=== PATIENT | male | born 1950 | race Caucasian/White ===

== ENCOUNTER → 2023-01-30 | Outpatient (CLI) | payer MEDICARE ==
--- NOTE | 2023-02-05 20:42 | CTL ---
EXAMINATION TYPE: CT Low Dose Lung DATE OF EXAM: 01/30/2023 8:53 AM CLINICAL INDICATION:Male, 72 years old with history of Z12.2 screening , F17.210 nicotine dependence; personal history of nicotine dependence , history of tobacco use. COMPARISON: None. Baseline study. TECHNIQUE: CT scan of the chest obtained without contrast from approximately the lung apices through the upper abdomen. Axial, coronal and sagittal reformatted images were obtained. Low dose technique w as utilized for nodule screening purposes. CT DLP: 63.5 mGycm, Automated exposure control for dose reduction was used. CT Contrast: Contrast used: None Oral contrast used: None FINDINGS: Lack of intravenous contrast and low dose technique limits the evaluation of the vascular and soft ti ssue structures. LUNGS: No evidence of pulmonary fibrosis. No evidence of focal consolidation, pneumothorax or pleural effusion. There are emphysematous changes bilaterally, moderate bilaterally with an upper lobe pred ominance. Pleural/parenchymal scarring along the lung apices. Nodules: RUL: None significant. Small calcified granuloma in the anterior lobe. RML: None significant. Small area of presumed scarring or atelectasis inferomedially. RLL: None SLICK: None LLL: None AIRWAY: Patent and unremarkable. LOWER NECK: No significant findings. HEART AND VASCULATURE: Heart is normal in size.. Mild/moderate coronary artery calcifications. Mild atherosclerotic calcifications of the aorta and proximal branch vessels along the arch. Ectatic asce nding aorta 4.3 cm, descending aorta normal in size 2.7 cm. Pulmonary trunk is not enlarged, diameter 2.4 cm. MEDIASTINUM: No gross evidence of adenopathy. SOFT TISSUES/LYMPH NODES: Mild bilateral gynecomastia. No axillary adenopathy. UPPER ABDOMEN: Mildly thickened adrenals without evidence of mass in the visualized portions. Moderat e hepatic steatosis. MUSCULOSKELETAL: Mild disc degeneration changes are present throughout the thoracolumbar spine. No a cute findings. Incompletely healed nonacute nondisplaced fractures of the left lateral eighth and radha th ribs. IMPRESSION: 1. No evidence of clinically significant pulmonary nodules. 2. Moderate bilateral centrilobular emphysema. 3. Mild/moderate coronary arterial calcifications. 4. Ectasia of the ascending aorta measuring up to 4 cm. Mild calcification of the aorta. 5. Moderate hepatic steatosis. CT LUNG RAD AND CT CHEST RECOMMENDATION: Lung-Rad 1 Negative: Continue annual screening with LDCT in 12 months. C Modifier (Personal history of lung cancer?): No. S Modifier (Other clinically significant or potentially significant findings?): No. Recommend smoking cessation (if current smoker), or continuation of smoking cessation (if prior smoke r). Annual screening for lung cancer with low-dose computed tomography is recommended in adults ages 55 to 77 years who have a 30 pack-year smoking history and currently smoke or have quit within the pa st 15 years. Screening should be discontinued once a person has not smoked for 15 years or develops a health problem that substantially limits life expectancy or the ability or willingness to have curat cameron lung surgery. Lung rads 2021 [email or web address]
== END | disposition home or self-care (01) ==
LOC: RADCTMAIN 08:12
PROVIDERS: ATTEND Family Medicine
DX: Z12.2 Encounter for screening for malignant neoplasm of respiratory organs (principal); J43.2 Centrilobular emphysema; K76.0 Fatty (change of) liver, not elsewhere classified; I70.0 Atherosclerosis of aorta; I25.10 Atherosclerotic heart disease of native coronary artery without angina pectoris; F17.210 Nicotine dependence, cigarettes, uncomplicated
CPT/HCPCS: 71271

== ENCOUNTER → 2023-01-30 | Outpatient (CLI) | payer MEDICARE ==
--- NOTE | 2023-01-30 15:11 | US ---
EXAMINATION TYPE: US liver DATE OF EXAM: 01/30/2023 COMPARISON: NONE CLINICAL INDICATION: Male, 72 years old with history of Z86.19 PERSONAL HISTORY OF OTHER INFECTIOUS; History of hepatitis B. Hx of other infectious and parasitic diseases. TECHNIQUE: Multiple sonographic images of the right upper quadrant are obtained. FINDINGS: EXAM MEASUREMENTS: Liver Length: 16.3 cm Gallbladder Wall: 0.3 cm CBD: 0.4 cm Right Kidney: 13.0 x 6.4 x 4.2 cm MICROBIOLOGY TECHNICIAN NOTES: Limited due to gas. Pancreas: Most of the pancreas is visualized and shows no gross abnormality. Liver: Moderate increased echogenicity. -Hypoechoic area seen adjacent to kathleen hepatis: 3.6 x 2.4 x 1.4 cm. Likely focal fatty sparing. Gallbladder: Borderline wall thickening likely due to nondistention. No surrounding fluid, hydropic c hange, or shadowing calculi. Evidence for sonographic Villanueva's sign: No CBD: Appears wnl Right Kidney: No hydronephrosis. IMPRESSION: 1. At least moderate hepatic steatosis. Appropriate clinical management is advised. 2. No gallstones or biliary ductal dilatation.
== END | disposition home or self-care (01) ==
LOC: RADUSWWP 08:13
PROVIDERS: ATTEND Family Medicine
DX: K76.0 Fatty (change of) liver, not elsewhere classified (principal); Z86.19 Personal history of other infectious and parasitic diseases
CPT/HCPCS: 76705

== ENCOUNTER → 2023-05-22 | Outpatient (CLI) | payer MEDICARE ==
[2023-05-22 16:17] LABS: Basophils # (A) 0.07 X 10*3/uL (0.00-0.10); Basophils % (A) 1.1 %; Eosinophils # (A) 0.19 X 10*3/uL (0.04-0.35); Eosinophils % (A) 3.1 %; HGB 15.9 g/dL (13.0-17.0); Lymphocytes # (A) 1.25 X 10*3/uL (0.90-5.00); Lymphocytes % (A) 20.4 %; MCHC 32.4 g/dL (32.0-37.0); MCV 95.5 FL (80.0-97.0); Monocytes # (A) 0.58 X 10*3/uL (0.20-1.00); Monocytes % (A) 9.4 %; NRBC Per 100 WBC 0 X 10*3/uL (0.00-0.01); Neutrophils # (A) 4.03 X 10*3/uL (1.80-7.70); Neutrophils % (A) 65.7 %; Platelet Count 282 X 10*3/uL (140-440); RBC 5.13 X 10*6/uL (4.40-5.60); RDW 12.9 % (11.5-14.5); WBC 6.14 X 10*3/uL (4.50-10.00)
== END | disposition home or self-care (01) ==
LOC: LABPAT 08:57
PROVIDERS: ATTEND Surgery
DX: Z01.818 Encounter for other preprocedural examination (principal); J98.4 Other disorders of lung; K40.90 Unilateral inguinal hernia, without obstruction or gangrene, not specified as recurrent; I51.7 Cardiomegaly; R94.31 Abnormal electrocardiogram [ECG] [EKG]; R00.0 Tachycardia, unspecified
CPT/HCPCS: 85025; 86850; 86900; 86901; 93005

== ENCOUNTER 2023-05-25 06:09 | Day surgery (SDC) | payer MEDICARE ==
[~2023-05-25 06:09] MED LIST: HEPARIN SODIUM,PORCINE 5,000 UNIT/ML 1 ML VIAL SQ PRN
[2023-05-25] MEDS ORDERED: HYDROmorphone 0.5 MG/0.5 ML SYRINGE IVP PRN (07:00)
[2023-05-25] MEDS: ACETAMINOPHEN TAB 500 MG TAB PO PRN (07:00)
[2023-05-25] MEDS: LACTATED RINGERS 1,000 ML IV SCH (07:10)
[2023-05-25] MEDS: ONDANSETRON 4 MG/2 ML VIAL IVP ONE (07:12)
[2023-05-25] MEDS: DEXAMETHASONE SOD PHOSPHATE 4 MG/ML 1 ML VIAL IV ONE (07:12)
[2023-05-25] MEDS: MIDAZOLAM 2 MG/2 ML VIAL IV PRN (07:24)
--- NOTE | 2023-05-25 07:25 | P.GSHP ---
History of Present Illness H&P Date: 05/25/23 Chief Complaint: Right inguinal hernia 72-year-old male here today for laparoscopic repair right inguinal hernia. Patient has complaints of a bulge that is painful at times for the last several months. Occurred after lifting heavy objects. When he was seen in the office i t was difficult to palpate a hernia with certainty. Today in the office and also when we did his recent colonoscopy a small hernia was identified although the patient states it sometimes gets quite large like lemon or mary's igloo in size. That is when its most painful. No history of prior hernias. Past Medical History Past Medical History: COPD, Hyperlipidemia, Skin Disorder Additional Past Medical History / Comment(s): emphysema-per hipolito, hernia rt groin, eczema - back of leg and foot History of Any Multi-Drug Resistant Organisms: None Reported Additional Past Surgical History / Comment(s): colonoscopy Past Anesthesia/Blood Transfusion Reactions: No Reported Reaction Smoking Status: Current every day smoker - Past Family History Mother Family Medical History: No Reported History Medications and Allergies Home Medications Medication Instructions Recorded Confirmed Type Atorvastatin [Lipitor] 20 mg PO HS 05/23/23 05/25/23 History Zolpidem [Ambien] 10 mg PO HS PRN 05/23/23 05/25/23 History Allergies Allergy/AdvReac Type Severity Reaction Status Date / Time No Known Allergies Allergy Verified 05/25/23 06:41 Surgical - Exam Vital Signs Temp Pulse Resp BP Pulse Ox 97.9 F 92 18 169/81 98 05/25/23 06:51 05/25/23 06:51 05/25/23 06:51 05/25/23 06:51 05/25/23 06:51 Physical exam: General: Well-developed, well-nourished HEENT: Normocephalic, sclerae nonicteric Abdomen: Nontender, nondistended, small right inguinal hernia Extremities: No edema Neuro: Alert and oriented Assessment and Plan (1) Right inguinal hernia Narrative/Plan: 72-year-old male with right inguinal hernia. Will proceed with laparoscopic da Clark assisted repair right inguinal hernia with mesh, possible open, possible bilateral. Risks of bleeding, infection, recurrence, bladder and bowel injury, numbness, nerve injury, conversion to an open procedure were discussed with the patient. The patient understands and wishes to proceed. Current Visit: Yes Status: Acute Code(s): K40.90 - UNIL INGUINAL HERNIA, W/O OBST OR GANGR, NOT SPCF RECUR SNOMED Code(s): 214556790
[2023-05-25] MEDS ORDERED: SUCCINYLCHOLINE CHLORIDE 200 MG/10 ML VIAL IV ONE (07:28)
[2023-05-25] MEDS ORDERED: NEOSTIGMINE 1 MG/ML 10 ML VIAL ONE (07:28)
[2023-05-25] MEDS ORDERED: LIDOCAINE 1% INJ 10MG/ML (20 ML MDV) ONE (07:28)
[2023-05-25] MEDS ORDERED: PROPOFOL 10 MG/ML 20 ML VIAL IV ONE (07:28)
[2023-05-25] MEDS ORDERED: ROCURONIUM 10 MG/ML (5 ML VIAL) IV ONE (07:28)
[2023-05-25] MEDS ORDERED: MIDAZOLAM 2 MG/2 ML VIAL ONE (07:28)
[2023-05-25] MEDS ORDERED: GLYCOPYRROLATE 0.2 MG/ML 2 ML VIAL ONE (07:28)
[2023-05-25] MEDS ORDERED: HYDROmorphone (PF) 1 MG/ML ONE (07:28)
[2023-05-25] MEDS ORDERED: LABETALOL 5 MG/ML VIAL MDV ONE (07:28)
[2023-05-25] MEDS ORDERED: fentaNYL (PF) 50 MCG/ML 2 ML AMP ONE (07:28)
[2023-05-25] MEDS: TAMSULOSIN 0.4 MG CAP.ER.24H PO ONE (07:28)
[2023-05-25] MEDS: BUPIVACAINE (PF) 0.25% 30 ML VIAL SQ ONE ×2 (07:56→07:58)
[2023-05-25] MEDS: LACTATED RINGERS 1,000 ML IV ONE (08:25)
--- NOTE | 2023-05-25 09:25 | P.OP ---
Date of Procedure: 05/25/23 Procedure(s) Performed: PREOPERATIVE DIAGNOSIS: Right inguinal hernia POSTOPERATIVE DIAGNOSIS: Right indirect inguinal hernia PROCEDURE: Laparoscopic da Clark assisted repair right inguinal hernia with mesh SURGEON: Dr. Rachel ANESTHESIA: General OPERATIVE PROCEDURE DETAILS: Patient was placed in the operating table in the supine position. The patient was placed under general anesthesia. The abdomen was prepped and draped in usual sterile fashion. A small curvilinear supraumbilical incision was made. The fascia was retracted anteriorly with Cari forceps. The Veress needle was inserted. The saline drop test was normal. Insufflation took place to 15 mmHg. An 8 mm trocar was placed into the peritoneal cavity. 2 additional 8 mm trochars were placed in the right upper quadrant and left upper quadrant under visualization. The robotic arms were then brought in and docked into place. The fenestrated bipolar was used in the left arm and the laparoscopic brandt was utilized in the right arm. A 30 8 mm scope was used in the up position. The peritoneal cavity was inspected. The patient had a moderate-sized indirect hernia on the right. The start of a tiny left inguinal hernia was noted. This was not repaired today. The peritoneum was incised in a horizontal fashion cephalad to the internal inguinal ring. Following that careful dissection of the preperitoneal space took place. This took place using both electrocautery, sharp dissection but primarily blunt dissection. Visualization of the pubic tubercle and Eric's ligament took place medially. Full dissection took place laterally as well. The hernia sac was fully dissected. There was no visible cord lipoma penetrating through the internal inguinal ring. Once we had adequate space the [id number] Progrip mesh was advanced into the preperitoneal space and flattened out appropriately to cover all potential hernia sites. The mesh was sutured to Eric's ligament using a short running absorbable 3 OV lock suture. The peritoneal defect was then closed using a absorbable 2-0 VLok suture. The hernia sac was incorporated into the peritoneal closure to help prevent future recurrence. The pneumoperitoneum was then evacuated. The skin of all 3 sites was closed using a 4-0 Monocryl stitch. Skin glue was then applied. TYPE OF MESH USED: 15 cm ProGrip LOCATION OF MESH: Sublay FIXATION: 3-0 absorbable V-Loc PREOPERATIVE DISCUSSION ON SMOKING CESSASTION: Yes PREOPERATIVE DISCUSSION ON MORBID OBESITY: Yes PREOPERATIVE DISCUSSION ON APPROPRIATE USE OF NARCOTIC USE: Yes PREOPERATIVE EDUCATION: Multi Modal, Smoking Cessation and Weight Loss with BMI over 35. DISPOSITION: Stable to recovery room
[2023-05-25 09:27] VITALS: TEMP 97.4
[2023-05-25] MEDS: KETOROLAC 15 MG/ML 1 ML VIAL IVP ONE (09:40)
[2023-05-25 10:51] VITALS: BP 119/76; PULSE 74; RESP 18
[2023-05-25] MEDS ORDERED: IBUPROFEN 600 MG TAB PO SCH (12:30)
[2023-05-25] MEDS ORDERED: ACETAMINOPHEN TAB 325 MG TAB PO SCH (15:30)
== END 2023-05-25 11:00 | disposition home or self-care (01) ==
LOC: OR 06:09
PROVIDERS: ATTEND Surgery
DX: K40.20 Bilateral inguinal hernia, without obstruction or gangrene, not specified as recurrent (principal); K63.5 Polyp of colon; E78.5 Hyperlipidemia, unspecified; J43.9 Emphysema, unspecified; Z79.899 Other long term (current) drug therapy; F17.200 Nicotine dependence, unspecified, uncomplicated
CPT/HCPCS: 49650; S2900